=== PATIENT | male | born 1980 | race Caucasian/White ===

== ENCOUNTER 2021-07-10 23:55 | Emergency (ER) | payer SELFPAY ==
[~2021-07-10 23:55] MED LIST: CIPRO500 MG PO; METRONIDAZOLE500 MG PO; NORCO 5-325 TA1 EACH PO; ZOFRAN8 MG PO
[2021-07-11 00:31] LABS: BASOPHIL 0.8 % (0-2); EOSINOPHIL 0.2 % (0-5); HCT 38.1 % (42.0-52.0); HGB 13.3 g/dl (13.2-18.0); LYMPHOCYTE 17.7 % (15-48); MCH 39.6 pg (25.0-31.0); MCHC 34.9 g/dL (32.0-36.0); MCV 113.4 fL (78.0-100.0); MONOCYTE 8.3 % (0-12); MPV 10.7 fL (6.0-9.5); NEUTROPHIL 72.4 % (41-80); NRBC 0; PLT 552 K/uL (150-400); RBC 3.36 M/uL (4.70-6.00); RDW 17.7 % (11.5-14.0); WBC 4.8 K/uL (4.0-10.5)
[2021-07-11 01:14] LABS: ALBUMIN 1.8 g/dL (3.4-5.0); BILIRUBIN - TOTAL 7.6 mg/dL (0.2-1.0); BUN/CREAT RATIO (CALC) 14.7 RATIO; CREATININE 0.68 mg/dL (0.67-1.17); GLOBULIN (CALCULATION) 4.1 g/dL; TOTAL PROTEIN 5.9 g/dL (6.4-8.2)
[2021-07-11 01:38] LABS: POTASSIUM 2.3 mmol/L (3.5-5.1)
[2021-07-11 04:45] LABS: BILIRUBIN 3+ mg/dL (NEGATIVE); BLOOD 1+ Ery/uL (NEGATIVE); CLARITY CLEAR (CLEAR); COLOR ORANGE (YELLOW); GLUCOSE (U) NORMAL (NORMAL); LEUKOCYTES NEGATIVE Leu/uL (NEGATIVE); NITRITE NEGATIVE (NEGATIVE); PROTEIN 1+ mg/dL (NEGATIVE); UROBILINOGEN >=8.0 mg/dL (0.2-1.0)
[2021-07-11 04:49] LABS: AMORPHOUS URATES CRYSTALS TRACE; BACTERIA TRACE; MUCOUS TRACE
[2021-07-11 07:38] LABS: INR 1.36 (0.9-1.2); PROTHROMBIN TIME 16.1 SECONDS (11.8-13.4); PTT 36.3 SECONDS (24.4-34.7)
[2021-07-11 07:41] LABS: ALBUMIN 1.6 g/dL (3.4-5.0); BILIRUBIN - TOTAL 8.9 mg/dL (0.2-1.0); BUN/CREAT RATIO (CALC) 16.9 RATIO; CREATININE 0.83 mg/dL (0.67-1.17); GLOBULIN (CALCULATION) 3.9 g/dL; POTASSIUM 3.6 mmol/L (3.5-5.1); TOTAL PROTEIN 5.5 g/dL (6.4-8.2)
[2021-07-12 05:08] LABS: HBSAG SCREEN Negative (Negative); HEP A AB, IGM Negative (Negative); HEP B CORE AB, IGM Negative (Negative); HEP C VIRUS AB 0.2 (0.0-0.9)
[2021-07-12 12:10] LABS: HEP A AB, IGM Negative (Negative)
== END 2021-07-11 10:54 | disposition other institution (70) ==
LOC: FER 23:55
PROVIDERS: Emergency Medicine; Internal Medicine
DX: J98.11 Atelectasis (principal); R18.8 Other ascites; K72.90 Hepatic failure, unspecified without coma; E87.6 Hypokalemia; Z20.822 Contact with and (suspected) exposure to COVID-19
CPT/HCPCS: 36415; 76705; 80053; 80074; 81001; 82140; 82150; 83690; 85025; 85610; 85730; 86708; J1170; J2060; J2405; J2543; J3411; J3475; J3480; J7030; P9046; Q9967; U0002